=== PATIENT | male | born 1990 | race Caucasian/White ===

== ENCOUNTER 2018-08-11 07:47 | Day surgery (SDC) | payer MEDICARE ==
[2018-08-08 15:34] VITALS: BMI 29.0
--- NOTE | 2018-08-11 06:31 | HP ---
HISTORY OF PRESENT ILLNESS: Mr. Goldstein is a 27-year-old gentleman presenting for evaluation of roughly 3 weeks worth of severe left-sided buttock and posterior thigh and calf pain in the left lower extremity matching mostly S1 pattern of pain. He states it feels like a severe cramp and does also notice some numbness in toes 4 and 5 of the left foot. He denies any concerns with the right leg. He has an MRI of disk from an outside facility in [place], which reveals left eccentric L5 disk herniation impacting the descending S1 nerve root that would match his symptoms well. At this time, he is not to do this with anything other than physical therapy and medications. He hopes to discuss surgery at this time. PAST MEDICAL HISTORY: alcohol syndrome. CURRENT MEDICATIONS: Ibuprofen, divalproex, escitalopram. PAST SURGICAL HISTORY: None. SOCIAL HISTORY: Denies tobacco use. Admits to social alcohol use. ALLERGIES: TO VICODIN. PHYSICAL EXAMINATION: GENERAL: The patient is alert and oriented x3. NEUROLOGIC: Gait is significantly antalgic. Lower extremity motor exam is normal though somewhat limited by pain. He has a positive left straight leg raise. ASSESSMENT: Lumbar disk herniation with lumbar radiculopathy. PLAN: Dr. Donis met with the patient, reviewed imaging, and advocated for a left L5 diskectomy. He explained to the patient the risks, benefits, and alternatives to the procedure. The patient expressed understanding and would like to move forward with surgeries as discussed. I do believe the patient is mentally competent and capable of making medical decisions for himself. We will move forward with surgery as planned. Job ID: [id number]
[2018-08-11] MEDS ORDERED: Midazolam HCl 2 mg/2 ml Vial ONE (09:02)
[2018-08-11] MEDS ORDERED: Fentanyl 100 MCG/2 ML VIAL ONE ×5 (10:53→13:37)
[2018-08-11] MEDS ORDERED: Bupivacaine HCl 0.5%/Epinephrine 1:200,000/PF 30 ml Vial ONE (13:08)
[2018-08-11] MEDS ORDERED: Tamsulosin HCl 0.4 MG CAP ONE (13:12)
[2018-08-11] MEDS ORDERED: Metoprolol Tartrate 5 MG/5 ML VIAL ONE (13:25)
[2018-08-11] MEDS ORDERED: Acetaminophen/Codeine 30-300mg Tablet ONE (14:27)
[2018-08-11] MEDS ORDERED: Rocuronium Bromide 10 MG/ML (10ML VIAL) ONE (15:20)
[2018-08-11] MEDS ORDERED: Glycopyrrolate 0.2 MG/ML 5 ML SYRINGE ONE (15:20)
[2018-08-11] MEDS ORDERED: Dexamethasone 20 MG/5 ML VIAL ONE (15:20)
[2018-08-11] MEDS ORDERED: Ondansetron PF 4 MG/2 ML Vial ONE (15:20)
[2018-08-11] MEDS ORDERED: Lidocaine 1% PF 5 ML VIAL ONE (15:20)
[2018-08-11] MEDS ORDERED: PROPOFOL 200 MG/20 ML VIAL ONE (15:20)
--- NOTE | 2018-08-12 10:18 | OP ---
DATE OF PROCEDURE: 08/11/2018 PUBLIC SAFETY OFFICER: Oniel Gilliam PA-C. INDICATION: Pain. DIAGNOSIS: Left S1 radiculopathy due to left L5 disk herniation. ANESTHESIA: General. PROCEDURE PERFORMED: Left L5 diskectomy. DESCRIPTION OF PROCEDURE: The patient was brought into the operating room and placed under general anesthesia. He was flipped from the supine to prone position on the operating room table. A linear incision was planned over the L5 segment. After prepping and draping and after appropriate operative pause, the incision was created. The soft tissues were swept left of midline. A self-retaining retractor was placed. High-speed cutting drill bit as well as 2, 3, and 4 mm Kerrisons were used to perform a laminectomy along the inferior aspect of L5 and the superior aspect of S1. The descending S1 nerve root was identified and mobilized medially. Protuberant disk material was identified at the level of L5, as well as a slight inferiorly migrated portion. These were removed until the descending S1 nerve root was well decompressed. The wound was irrigated. Hemostasis was maintained throughout. The wound was then closed in anatomic layers and a pressure dressing was applied. There were no known procedural complications. Job ID: [id number]
== END 2018-08-11 15:00 | disposition home or self-care (01) ==
LOC: SDC 07:47
PROVIDERS: ATTEND Neurological Surgery
PROC: 0SB40ZZ Excision of Lumbosacral Disc, Open Approach (ICD-10-PCS; principal; 2018-08-11)
DX: M51.17 Intervertebral disc disorders with radiculopathy, lumbosacral region (principal); F32.9 Major depressive disorder, single episode, unspecified; Z79.899 Other long term (current) drug therapy; Z88.5 Allergy status to narcotic agent
CPT/HCPCS: 76000; J0670; J1100; J2001; J2250; J2405; J2704; J3010

== ENCOUNTER 2023-03-19 14:13 | Outpatient (CLI) | payer OTHER | END 2023-03-19 14:14 | disposition home or self-care (01) | LOC: DTY/OP 14:13 | PROVIDERS: ATTEND Family Medicine | DX: E11.9 Type 2 diabetes mellitus without complications (principal) | CPT/HCPCS: 97802 ==